=== PATIENT | female | born 1950 | race Caucasian/White ===

== ENCOUNTER → 2016-05-20 | Outpatient (CLI) | payer MEDICARE, BC | LOC: MW.CHFP 08:00 | PROVIDERS: ATTEND Family Medicine | DX: J30.1 Allergic rhinitis due to pollen (principal); J45.909 Unspecified asthma, uncomplicated; J32.9 Chronic sinusitis, unspecified; R05 Cough | CPT/HCPCS: 99214 ==

== ENCOUNTER → 2016-06-11 | Outpatient (CLI) | payer MEDICARE, BC | LOC: MW.CHFP 08:00 | PROVIDERS: ATTEND Family Medicine | DX: I10 Essential (primary) hypertension (principal); R51 Headache | CPT/HCPCS: G0463 ==

== ENCOUNTER 2018-12-19 12:08 | Day surgery (SDC) | payer MEDICARE, BC ==
[~2018-12-19 12:08] MED LIST: Betamethasone Acetate/Betamethasone Sod Phosphate 30 MG/5 ML MDV EPIDUR ONE; Diazepam 2 MG Tab PO ONE; Iopamidol 200-M 10 ML vial ITHECAL ONE; Lidocaine 2% 5 ML SDV INJECT ONE; Ropivacaine 0.5% 5 MG/ML 30 ML SDV INJECT ONE
--- NOTE | 2018-12-19 19:17 | OR ---
SURGEON: Sheela Phillips D.O. DATE OF PROCEDURE: 12/19/2018 PRIMARY SURGEON: Sheela Phillips D.O. PREOPERATIVE DIAGNOSES: 1. Failed back surgery syndrome. 2. L5-S1 radiculopathy. 3. Chronic low back pain. POSTOPERATIVE DIAGNOSES: 1. Failed back surgery syndrome. 2. L5-S1 radiculopathy. 3. Chronic low back pain. PROCEDURE PERFORMED: 1. Left L5 transforaminal epidural steroid injection. 2. Fluoroscopic guidance for needle placement. 3. Local with oral Valium for sedation. PREOPERATIVE PAIN: 6/10. POSTOPERATIVE PAIN: 0/10. FOLLOWUP: In the pain clinic in 3 weeks. SCREENING QUESTIONS: The patient answered "no" to all of the following questions: 1. Are you allergic to iodine, Betadine or latex? 2. Do you have a bleeding disorder? 3. Do you have any joint replacements, heart valve replacements, or a pacemaker? 4. Are you allergic to anti-inflammatories or blood thinners? 5. Do you have any current local or systemic infections? MEDICAL NECESSITY: This is a patient with a history of chronic low back pain and lower extremity radicular pain in the above dermatomal pattern that comes in for the above diagnostic and therapeutic procedure. Pertinent positives and negatives for this suspected disease process along with the diagnostic findings and testing are in the patient's history and physical exam. The most salient feature includes radicular pain in the above dermatomal pattern. The patient had failed attempts at conservative therapy including physical therapy, nonsteroidal anti- inflammatory drugs, and other medications. No contraindications to perform this procedure including medical, no bleeding disorders or infections, no psychological, no antisocial personality disorder or active addiction disorder. There are no work-related issues, and, in general, the patient does not have any history of multiple prior interventions, surgeries or nerve blocks which have failed to return the patient to function. The patient's other symptoms to be treated include numbness, paresthesia, dysesthesia or hypoesthesia referred into the left lower extremity or any weakness in the involved myotome. This procedure is being performed in accordance with national guidelines as written by the [employer] ([place]). DESCRIPTION OF PROCEDURE: The patient had the procedure thoroughly explained including risks, benefits and alternatives. Consent was signed in my clinic indicating understanding and willingness to proceed. The patient presented to [facility] where the patient was escorted to the dressing room to disrobe and change into a hospital gown. Preoperative vital signs were taken and stable. The patient reported that Valium was taken prior to the procedure. The patient was brought to the procedure room and placed in the prone position on the table. A pillow was placed under the abdomen in order to flatten the lumbar lordosis. The back was prepped with ChloraPrep and sterilely draped. All personnel in the operating room were dressed in appropriate attire including surgical scrubs, head and shoe covers. This was to ensure sterility while in the treatment room. During the time fluoroscopy was in use, all personnel in the operating room wore lead ackerman with thyroid collars. Sterile technique was used during the procedure. The fluoroscope was placed for the left L5 transforaminal epidural steroid injection. There was no sign of infection at the skin site for needle insertion. The skin was anesthetized with 2% lidocaine with a 27 gauge 1-1/2 inch needle. Then a 22 gauge 3-1/2 inch spinal needle, advanced to the L5. Under direct fluoroscopic guidance needle position was verified in three views; AP, oblique and lateral, with 0.2 cubic centimeters increments of Isovue-200 dye. No intravascular flow pattern was observed under live fluoroscopy. Then 12 milligrams of Celestone was slowly injected after negative aspiration of heme, cerebrospinal fluid and no paresthesias were noted. The needle was cleared prior to removal from the skin. No adverse reactions were noted. The patient was brought to the recovery room awake and in good condition by my staff. The patient was monitored and discharge instructions were given after a brief stay in the recovery area. Both oral and written discharge and follow up instructions were given. The patient will follow up in the clinic in 3-4 weeks post procedure to evaluate the efficacy. The patient verbalized understanding including understanding of those signs and symptoms that would require emergency care and knows how to contact the office if there are any problems or questions in the meantime. LOVE GANNON /[id number]
== END 2018-12-19 14:16 | disposition home or self-care (01) ==
LOC: MW.SDS 12:08
PROVIDERS: ATTEND Anesthesiology
DX: M96.1 Postlaminectomy syndrome, not elsewhere classified (principal); M54.17 Radiculopathy, lumbosacral region; G89.29 Other chronic pain; J45.909 Unspecified asthma, uncomplicated; I10 Essential (primary) hypertension; E78.00 Pure hypercholesterolemia, unspecified; M48.061 Spinal stenosis, lumbar region without neurogenic claudication; M51.16 Intervertebral disc disorders with radiculopathy, lumbar region; M47.26 Other spondylosis with radiculopathy, lumbar region; Z88.1 Allergy status to other antibiotic agents; Z88.6 Allergy status to analgesic agent; Z88.0 Allergy status to penicillin; Z88.2 Allergy status to sulfonamides; Z79.899 Other long term (current) drug therapy; Z79.82 Long term (current) use of aspirin; Z87.891 Personal history of nicotine dependence
CPT/HCPCS: 64483; A9270; J0702; 62323

== ENCOUNTER 2019-11-13 11:06 | Day surgery (SDC) | payer MEDICARE, BC ==
[2019-11-13] MEDS ORDERED: Ropivacaine 0.5% 5 MG/ML 30 ML SDV INJECT ONE (12:30)
[2019-11-13] MEDS ORDERED: Iopamidol 200-M 10 ML vial ITHECAL ONE (12:30)
[2019-11-13] MEDS ORDERED: Lidocaine 2% 5 ML SDV INJECT ONE (12:30)
[2019-11-13] MEDS ORDERED: Betamethasone Acetate/Betamethasone Sod Phosphate 30 MG/5 ML MDV EPIDUR ONE (12:30)
--- NOTE | 2019-11-13 16:50 | OR ---
SURGEON: Sheela Phillips D.O. DATE OF PROCEDURE: 11/13/2019 PRIMARY SURGEON: Sheela Phillips DO ASSISTANTS: OR staff present: 1. Willian Harper RN. 2. Willie Wilkins RN. 3. Willie Calderón RT. WOUND CLASS: I. PREOPERATIVE DIAGNOSES: 1. Failed back surgery syndrome. 2. Left sacroiliac joint arthropathy. 3. Chronic lumbosacral back pain. POSTOPERATIVE DIAGNOSES: 1. Failed back surgery syndrome. 2. Left sacroiliac joint arthropathy. 3. Chronic lumbosacral back pain. PROCEDURES PERFORMED: 1. Left sacroiliac joint injection. 2. Fluoroscopic guidance for needle placement. 3. Local with oral Valium for sedation. SCREENING QUESTIONS: The patient answered "No" to all the followin. Are you allergic to iodine, Betadine or latex? 2. Do you have a bleeding disorder? 3. Do you have any joint replacements, heart valve replacements or a pacemaker? 4. Are you on any anti-inflammatories or blood thinners? 5. Do you have any current local or systemic infections? MEDICAL NECESSITY: This is a patient with a history of severe chronic low back pain and sacroiliac joint irritation with pain over the sacral sulcus and the buttocks region who comes in for the above diagnostic and therapeutic procedure. Please see medical necessity note attached. This procedure is being done in accordance with guidelines as written by the International [employer] ([place]). DESCRIPTION OF PROCEDURE: The patient had the procedure thoroughly explained including all possible risks, benefits and alternatives. Consent was signed in my clinic indicating understanding and willingness to proceed. The [facility] and was escorted to the dressing room to disrobe and change into a hospital gown. Preoperative vital signs were taken and stable. The patient reported that Valium was taken prior to the procedure. The patient was brought to the procedure room and placed in the prone position on the procedure room table. A pillow was placed under the hips in order to flatten the lumbar lordosis. The back was prepped with ChloraPrep and sterilely draped. All personnel in the operating room were dressed in appropriate attire including surgical scrubs, head and shoe covers. This was to ensure sterility while in the treatment room. During the time fluoroscopy was in use all personnel in the operating room wore lead ackerman with thyroid collars. Sterile technique was used during the procedure. The patient was awake and conversant throughout the procedure. The fluoroscope was positioned to provide an oblique view of the sacroiliac joint. There was no evidence of infection at the site of needle insertion. The skin was anesthetized with 2% Lidocaine with a sterile 27-gauge 1.5 inch needle. Then under fluoroscopy a 22-gauge 3.5 inch spinal needle was placed within the sacroiliac joint in the lower one-third of the joint. IsoVue-200 contrast dye was injected under live fluoroscopy and no intravascular flow pattern was observed. After negative aspiration of heme, the following solution was injected: 0.5% Ropivacaine, Celestone and 2% Lidocaine. The patient tolerated the procedure well and vital signs were stable during and after the procedure. The staff escorted the patient to the recovery area and the patient was released to home in stable condition after a brief stay in the recovery room monitored by the nurse. The patient was given both oral and written discharge and follow up instructions. Recommended follow up in two weeks. The patient is able to contact the office if there are any additional problems or questions in the meantime. The patient was given discharge instruction and verbalizes understanding including understanding of those signs and symptoms that would require emergency care. PREOPERATIVE PAIN: 7 to 8 out of 10. POSTOPERATIVE PAIN: 2/10. FOLLOWUP: In the Pain Clinic in 3 weeks. LOVE / TERESSA /[id number]
== END 2019-11-13 13:22 ==
LOC: MW.SDS 11:06
PROVIDERS: ATTEND Anesthesiology
DX: G89.29 Other chronic pain (principal); M96.1 Postlaminectomy syndrome, not elsewhere classified; M47.816 Spondylosis without myelopathy or radiculopathy, lumbar region; M51.36 Other intervertebral disc degeneration, lumbar region; M53.3 Sacrococcygeal disorders, not elsewhere classified; E78.00 Pure hypercholesterolemia, unspecified; I10 Essential (primary) hypertension; F41.8 Other specified anxiety disorders; J45.909 Unspecified asthma, uncomplicated; Z87.891 Personal history of nicotine dependence; Z88.1 Allergy status to other antibiotic agents; Z88.0 Allergy status to penicillin; Z88.6 Allergy status to analgesic agent; Z79.899 Other long term (current) drug therapy
CPT/HCPCS: J0702; J2001; J2795; Q9966

== ENCOUNTER 2019-12-27 10:55 | Day surgery (SDC) | payer MEDICARE, BC ==
[2019-12-27] MEDS ORDERED: Betamethasone Acetate/Betamethasone Sod Phosphate 30 MG/5 ML MDV EPIDUR ONE (12:00)
[2019-12-27] MEDS ORDERED: Ropivacaine 0.5% 5 MG/ML 30 ML SDV INJECT ONE (12:00)
[2019-12-27] MEDS ORDERED: Lidocaine 2% 5 ML SDV INJECT ONE (12:00)
[2019-12-27] MEDS ORDERED: Iopamidol 200-M 10 ML vial ITHECAL ONE (12:00)
--- NOTE | 2019-12-27 16:32 | OR ---
SURGEON: Sheela Phillips D.O. DATE OF PROCEDURE: 12/27/2019 ASSISTANTS: OR staff present: 1. Chriss Ramirez. 2. Willian Harper RN. 3. Willian Arriola RT. WOUND CLASS: I. PREOPERATIVE DIAGNOSES: 1. Failed back surgery syndrome. 2. Left S1 radiculopathy. POSTOPERATIVE DIAGNOSES: 1. Failed back surgery syndrome. 2. Left S1 radiculopathy. PROCEDURES PERFORMED: 1. Left S1 transforaminal epidural steroid injection. 2. Fluoroscopic guidance for needle placement. 3. Local with oral Valium for sedation. SCREENING QUESTIONS: The patient answered "no" to all of the following questions: 1. Are you allergic to iodine, Betadine or latex? 2. Do you have a bleeding disorder? 3. Do you have any joint replacements, heart valve replacements, or a pacemaker? 4. Are you allergic to anti-inflammatories or blood thinners? 5. Do you have any current local or systemic infections? DESCRIPTION OF PROCEDURE: The patient had the procedure thoroughly explained including risks, benefits and alternatives. Consent was signed in my clinic indicating understanding and willingness to proceed. The patient presented to [facility] where the patient was escorted to the dressing room to disrobe and change into a hospital gown. Preoperative vital signs were taken and stable. The patient reported that Valium was taken prior to the procedure. The patient was brought to the procedure room and placed in the prone position on the table. A pillow was placed under the abdomen in order to flatten the lumbar lordosis. The back was prepped with ChloraPrep and sterilely draped. All personnel in the operating room were dressed in appropriate attire including surgical scrubs, head and shoe covers. This was to ensure sterility while in the treatment room. During the time fluoroscopy was in use, all personnel in the operating room wore lead ackerman with thyroid collars. Sterile technique was used during the procedure. The fluoroscope was placed for the left S1 transforaminal epidural steroid injection. There was no sign of infection at the skin site for needle insertion. The skin was anesthetized with 2% lidocaine with a 27 gauge 1-1/2 inch needle. Then, a 22 gauge 3-1/2 inch spinal needle, advanced to the left S1. Under direct fluoroscopic guidance needle position was verified in three views; AP, oblique and lateral, with 0.2 cubic centimeters increments of Isovue- 200 dye. No intravascular flow pattern was observed under live fluoroscopy. Then 12 milligrams of Celestone and local was slowly injected after negative aspiration of heme, cerebrospinal fluid and no paresthesias were noted. The needle was cleared prior to removal from the skin. No adverse reactions were noted. The patient was brought to the recovery room awake and in good condition by my staff. The patient was monitored and discharge instructions were given after a brief stay in the recovery area. Both oral and written discharge and follow up instructions were given. The patient will follow up in the clinic in 3-4 weeks post procedure to evaluate the efficacy. The patient verbalized understanding including understanding of those signs and symptoms that would require emergency care and knows how to contact the office if there are any problems or questions in the meantime. PREOPERATIVE PAIN: 5+/10. POSTOPERATIVE PAIN: 3/10. FOLLOWUP: In the Pain Clinic in 1 month. LOVE / TERESSA /[id number] SUE
== END 2019-12-27 13:00 | disposition home or self-care (01) ==
LOC: MW.SDS 10:55
PROVIDERS: ATTEND Anesthesiology
DX: M96.1 Postlaminectomy syndrome, not elsewhere classified (principal); M48.061 Spinal stenosis, lumbar region without neurogenic claudication; M51.16 Intervertebral disc disorders with radiculopathy, lumbar region; M47.26 Other spondylosis with radiculopathy, lumbar region; M53.3 Sacrococcygeal disorders, not elsewhere classified; J45.909 Unspecified asthma, uncomplicated; F41.8 Other specified anxiety disorders; E78.00 Pure hypercholesterolemia, unspecified; I10 Essential (primary) hypertension; Z88.8 Allergy status to other drugs, medicaments and biological substances; Z88.1 Allergy status to other antibiotic agents; Z88.0 Allergy status to penicillin; Z88.2 Allergy status to sulfonamides; Z79.899 Other long term (current) drug therapy; Z79.82 Long term (current) use of aspirin; Z98.890 Other specified postprocedural states; Z87.891 Personal history of nicotine dependence
CPT/HCPCS: 64483; J0702; J2001; J2795; Q9966

== ENCOUNTER 2021-03-09 19:28 | Emergency (ER) | payer MEDICARE, BC ==
[2021-03-09] MEDS ORDERED: Aspirin 81 MG Tab.Chew PO ONE (20:18)
[2021-03-09 20:42] LABS: CARBON DIOXIDE,CO2 22.7 mmol/L (21.0-32.0); POTASSIUM,K 3.7 mmol/L (3.5-5.1)
[2021-03-09] MEDS ORDERED: Heparin Sodium 5,000 Units/ML Vial IVPUSH ONE (21:00)
[2021-03-09] MEDS ORDERED: Heparin Sodium/0.45% NaCl 500 ML IV SCH (21:00)
[2021-03-09] MEDS ORDERED: Lactated Ringers 1,000 ML IV STA (21:11)
[2021-03-09] MEDS ORDERED: LORazepam 2 MG/ML SDV IVPUSH STA (21:47)
== END 2021-03-09 22:06 ==
LOC: MW.ED 19:28
DX: I21.4 Non-ST elevation (NSTEMI) myocardial infarction (principal); I10 Essential (primary) hypertension; R79.89 Other specified abnormal findings of blood chemistry; Z88.1 Allergy status to other antibiotic agents; Z88.2 Allergy status to sulfonamides; Z88.5 Allergy status to narcotic agent; Z88.8 Allergy status to other drugs, medicaments and biological substances; Z20.822 Contact with and (suspected) exposure to COVID-19; Z79.899 Other long term (current) drug therapy
CPT/HCPCS: 36415; 71045; 80053; 83735; 84439; 84443; 84484; 85025; 85379; 85610; 85730; 93005; 96365; 96375; 99285; A9270; J1644; J2060; J7120; U0002

== ENCOUNTER 2022-10-20 10:06 | Emergency (ER) | payer MEDICARE, BC ==
[2022-10-20] MEDS ORDERED: Sodium Chloride 0.9% 10 ML Syringe FLUSH PRN (10:07)
[2022-10-20] MEDS ORDERED: Sodium Chloride 0.9% 2.5 ML Syringe FLUSH PRN (10:07)
[2022-10-20 10:26] LABS: BASOPHILS PERCENT AUTO 0.4 % (0.0-1.5); EOSINOPHILS ABSOLUTE AUTO 0.1 K/uL (0.0-0.7); EOSINOPHILS PERCENT AUTO 1.1 % (0.0-7.0); HEMATOCRIT 41.8 % (36.0-46.0); LYMPHOCYTES ABSOLUTE AUTO 1.7 K/uL (0.6-2.4); LYMPHOCYTES PERCENT AUTO 38.2 % (16.0-40.0); MEAN CORPUSCULAR HEMOGLOBIN 28.3 pg (27.0-32.0); MEAN CORPUSCULAR HGB CONC 33.5 g/dL (31.0-37.0); MEAN CORPUSCULAR VOLUME 84.6 fL (80.0-98.0); MONOCYTES ABSOLUTE AUTO 0.6 K/uL (0.0-0.8); MONOCYTES PERCENT AUTO 14.2 % (0.0-15.0); NEUTROPHILS ABSOLUTE AUTO 2.1 K/uL (1.4-5.7); NEUTROPHILS PERCENT AUTO 46.1 % (48.0-80.0); NRBC ABSOLUTE 0 K/uL; PLATELET COUNT,PLT 192 K/uL (150-400); RED BLOOD CELL COUNT 4.94 M/uL (4.30-5.90); WHITE BLOOD CELL COUNT,WBC 4.45 K/uL (4.0-11.0)
[2022-10-20 10:47] LABS: A/G RATIO 1.1 (0.9-1.6); ALANINE AMINOTRANSFERASE,ALT 27 IU/L (14-63); ALKALINE PHOSPHATASE 42 U/L (46-116); ASPARTATE AMNIOTRANSFERASE,AST 24 IU/L (15-37); BILIRUBIN TOTAL 0.5 mg/dL (0.2-1.0); BLOOD UREA NITROGEN,BUN 18 mg/dL (7.0-18.0); CALCIUM 9.3 mg/dL (8.5-10.1); CARBON DIOXIDE,CO2 25.1 mmol/L (21.0-32.0); CHLORIDE,CL 103 mmol/L (98-107); GLUCOSE RANDOM 125 mg/dL (74-106); POTASSIUM,K 3.8 mmol/L (3.5-5.1); PROTEIN TOTAL,TP 7.5 g/dL (6.4-8.2); SODIUM,NA 140 mmol/L (136-145)
[2022-10-20 10:48] LABS: ESTIMATED GFR 59 mL/min (>60)
[2022-10-20] MEDS ORDERED: Sodium Chloride 0.9% 1,000 ML IV STA (10:51)
[2022-10-20] MEDS ORDERED: Ondansetron 4 MG/2 ML SDV IVPUSH ONE (10:51)
[2022-10-20] MEDS ORDERED: Meclizine 25 MG Tab PO ONE (10:51)
== END 2022-10-20 12:13 | disposition home or self-care (01) ==
LOC: MW.ED 10:06
DX: R42 Dizziness and giddiness (principal); R07.9 Chest pain, unspecified; I10 Essential (primary) hypertension; J45.909 Unspecified asthma, uncomplicated; Z79.899 Other long term (current) drug therapy; Z88.8 Allergy status to other drugs, medicaments and biological substances; Z88.1 Allergy status to other antibiotic agents; Z88.6 Allergy status to analgesic agent; Z88.5 Allergy status to narcotic agent; Z88.0 Allergy status to penicillin; Z88.2 Allergy status to sulfonamides; Z79.82 Long term (current) use of aspirin; Z20.822 Contact with and (suspected) exposure to COVID-19
CPT/HCPCS: 36415; 71045; 71045-26; 80053; 84484; 85025; 93005; 93010; 96361; 96374; 99284; 99285-25; A9270-GY; J2405; J3490; J7030; U0002

== ENCOUNTER 2024-10-20 19:20 | Emergency (ER) | payer MEDICARE, BC ==
[2024-10-20] MEDS ORDERED: Sodium Chloride 0.9% 10 ML Syringe FLUSH PRN (19:22)
[2024-10-20] MEDS ORDERED: Sodium Chloride 0.9% 2.5 ML Syringe FLUSH PRN (19:22)
[2024-10-20 19:45] LABS: NRBC ABSOLUTE 0.03 K/uL (0.00-0.02); NRBC PERCENT 0.2 /100WBC (0.0-0.2); PLATELET COUNT,PLT 107 K/uL (150-400); RED BLOOD CELL COUNT 4.44 M/uL (4.10-5.30); WHITE BLOOD CELL COUNT,WBC 13.25 K/uL (3.9-11.3)
[2024-10-20] MEDS: methylPREDNISolone Sodium Succinate 125 MG/2 ML SDV IVPUSH ONE (19:48)
[2024-10-20 19:51] LABS: BASE EXCESS VENOUS -8.2 (-2.0-3.0); BICARBONATE,VENOUS 15.0 mEq/L (22-29); PCO2 VENOUS 25.0 mmHG (41-51); PH,VENOUS 7.39 (7.32-7.43); PO2 VENOUS 55.0 mmHG (35-45)
[2024-10-20 20:00] LABS: INR 1.24 (0.86-1.11)
[2024-10-20 20:27] LABS: BAND ABSOLUTE MAN 3.45; BAND PERCENT MAN 26 %; LYMPHOCYTES ABSOLUTE MAN 0.27 K/uL (1.00-4.80); LYMPHOCYTES PERCENT MAN 2 % (24-44); METAMYELOCYTE ABSOLUTE MAN 1.33; METAMYELOCYTE PERCENT MAN 10 %; MONOCYTES ABSOLUTE MAN 0.66 K/uL (0.00-0.80); MONOCYTES PERCENT MAN 5 % (0-8); MYELOCYTE ABSOLUTE MAN 0.40; MYELOCYTE PERCENT MAN 3 %; SEG NEUTROPHILS ABSOLUTE MAN 7.16 K/uL (1.80-7.70); SEG NEUTROPHILS PERCENT MAN 54 % (41-71)
[2024-10-20 20:28] LABS: A/G RATIO 0.8 (0.9-1.6); ALANINE AMINOTRANSFERASE,ALT 23 IU/L (14-63); ASPARTATE AMNIOTRANSFERASE,AST 63 IU/L (15-37); BILIRUBIN TOTAL 1.3 mg/dL (0.2-1.0); BLOOD UREA NITROGEN,BUN 93 mg/dL (7.0-18.0); CARBON DIOXIDE,CO2 16.3 mmol/L (21.0-32.0); CHLORIDE,CL 98 mmol/L (98-107); CREATININE 5.2 mg/dL (0.6-1.0); ESTIMATED GFR 8 mL/min (>60); ETHANOL BLOOD MEDICAL <3 mg/dL; GLUCOSE RANDOM 105 mg/dL (74-106); POTASSIUM,K 3.9 mmol/L (3.5-5.1); PRO B-TYPE NATRIUR PEPT,BNPPRO 7153 pg/mL (0-450); PROTEIN TOTAL,TP 7.3 g/dL (6.4-8.2); SODIUM,NA 136 mmol/L (136-145)
[2024-10-20] MEDS: Furosemide 40 MG/4 ML VIAL IVPUSH ONE ×3 (20:39→22:42)
[2024-10-20] MEDS: Nitroglycerin 0.4 MG Tab.SL SL ONE (20:56)
[2024-10-20] MEDS: Ondansetron 4 MG/2 ML SDV IVPUSH ONE (21:04)
[2024-10-20 21:06] LABS: GLUCOSE,URINE NEGATIVE (NEGATIVE); OCCULT BLOOD,URINE TRACE-INTACT (NEGATIVE)
[2024-10-20 21:07] LABS: PCO2 VENOUS 21.0 mmHG (41-51); PH,VENOUS 7.39 (7.32-7.43); PO2 VENOUS 80.0 mmHG (35-45)
[2024-10-20 21:08] LABS: BASE EXCESS VENOUS -10.3 (-2.0-3.0); BICARBONATE,VENOUS 13.0 mEq/L (22-29)
[2024-10-20 21:15] LABS: AMPHETAMINES SCREEN, URINE NEGATIVE (CUTOFF=500); BUPRENORPHINE SCREEN,URINE NEGATIVE (CUTOFF=10); METHADONE SCREEN, URINE NEGATIVE (CUTOFF=200); METHAMPHETAMINES SCREEN, URINE NEGATIVE (CUTOFF=500); OXYCODONE SCREEN,URINE NEGATIVE (CUT0FF=100); PCP SCREEN,URINE NEGATIVE (CUTOFF=25); THC SCREEN,URINE 20 NG/ML NEGATIVE (CUTOFF=50)
[2024-10-20 21:15] LABS: APPEARANCE,URINE HAZY
[2024-10-20 21:17] LABS: EPITHELIAL CELLS,URINE MODERATE (NONE-FEW)
[2024-10-20] MEDS: LORazepam 2 MG/ML SDV IVPUSH ONE (21:54)
[2024-10-20 22:16] LABS: BLOOD UREA NITROGEN,BUN 88 mg/dL (7.0-18.0); CARBON DIOXIDE,CO2 11.1 mmol/L (21.0-32.0); CHLORIDE,CL 98 mmol/L (98-107); CREATININE 5.0 mg/dL (0.6-1.0); GLUCOSE RANDOM 106 mg/dL (74-106); POTASSIUM,K 3.7 mmol/L (3.5-5.1); SODIUM,NA 133 mmol/L (136-145)
[2024-10-20 22:18] LABS: ESTIMATED GFR 8 mL/min (>60)
[2024-10-20] MEDS: Heparin Sodium 5,000 Units/ML Vial IVPUSH ONE (22:32)
[2024-10-20] MEDS: Heparin Sodium/0.45% NaCl 25,000 UNITS/250 ML BAG IV SCH (22:33)
[2024-10-21 00:18] LABS: BASE EXCESS VENOUS -9.4 (-2.0-3.0); BICARBONATE,VENOUS 12.0 mEq/L (22-29); PCO2 VENOUS 16.0 mmHG (41-51); PH,VENOUS 7.47 (7.32-7.43); PO2 VENOUS 184.0 mmHG (35-45)
== END 2024-10-21 00:51 ==
LOC: MW.ED 19:20
DX: I21.4 Non-ST elevation (NSTEMI) myocardial infarction (principal); J81.0 Acute pulmonary edema; I13.0 Hypertensive heart and chronic kidney disease with heart failure and stage 1 through stage 4 chronic kidney disease, or unspecified chronic kidney disease; I50.9 Heart failure, unspecified; N18.9 Chronic kidney disease, unspecified; R41.82 Altered mental status, unspecified; R09.02 Hypoxemia; R53.1 Weakness; R79.89 Other specified abnormal findings of blood chemistry; R05.1 Acute cough; J18.9 Pneumonia, unspecified organism; D64.9 Anemia, unspecified; D69.6 Thrombocytopenia, unspecified; Z85.3 Personal history of malignant neoplasm of breast; Z92.21 Personal history of antineoplastic chemotherapy; Z88.0 Allergy status to penicillin; Z88.1 Allergy status to other antibiotic agents; Z88.2 Allergy status to sulfonamides; Z88.5 Allergy status to narcotic agent; Z88.8 Allergy status to other drugs, medicaments and biological substances; Z79.82 Long term (current) use of aspirin; Z79.899 Other long term (current) drug therapy; Z90.49 Acquired absence of other specified parts of digestive tract
CPT/HCPCS: 36415; 51702; 70450; 71045; 71250; 74176; 80048; 80053; 80143; 80179; 80305; 80307; 81001; 82550; 82803; 83605; 83735; 83880; 84100; 84484; 85025; 85379; 85610; 85730; 87040; 87426; 93005; 94660; 96365; 96366; 96367; 96368; 96375; 96376; 99285; A9270; J0692; J1644; J1938; J2060; J2405; J2919; J3374; J7030; J7050; 93010

== ENCOUNTER 2024-12-10 10:12 | Emergency (ER) | payer MEDICARE, BC ==
[2024-12-10] MEDS ORDERED: Sodium Chloride 0.9% 10 ML Syringe FLUSH PRN (10:37)
[2024-12-10] MEDS ORDERED: Sodium Chloride 0.9% 2.5 ML Syringe FLUSH PRN (10:37)
[2024-12-10 11:13] LABS: NRBC ABSOLUTE 1.26 K/uL (0.00-0.02); NRBC PERCENT 4.7 /100WBC (0.0-0.2); RED BLOOD CELL COUNT 3.28 M/uL (4.10-5.30); WHITE BLOOD CELL COUNT,WBC 26.77 K/uL (3.9-11.3)
[2024-12-10 11:34] LABS: PLATELET COUNT,PLT 21 K/uL (150-400)
[2024-12-10 11:36] LABS: BAND ABSOLUTE MAN 0.80; BAND PERCENT MAN 3 %; LYMPHOCYTES ABSOLUTE MAN 7.76 K/uL (1.00-4.80); LYMPHOCYTES PERCENT MAN 29 % (24-44); SEG NEUTROPHILS ABSOLUTE MAN 2.94 K/uL (1.80-7.70); SEG NEUTROPHILS PERCENT MAN 11 % (41-71)
[2024-12-10 11:37] LABS: BASOPHILS ABSOLUTE MAN 0.27 K/uL (0.00-0.20); BASOPHILS PERCENT MAN 1 % (0-1); EOSINOPHILS ABSOLUTE MAN 0.27 K/uL (0.00-0.45); EOSINOPHILS PERCENT MAN 1 % (0-6); METAMYELOCYTE ABSOLUTE MAN 0.27; METAMYELOCYTE PERCENT MAN 1 %; MONOCYTES ABSOLUTE MAN 14.19 K/uL (0.00-0.80); MONOCYTES PERCENT MAN 53 % (0-8); MYELOCYTE ABSOLUTE MAN 0.27; MYELOCYTE PERCENT MAN 1 %
[2024-12-10 11:47] LABS: A/G RATIO 0.9 (0.9-1.6); ALANINE AMINOTRANSFERASE,ALT 20.0 IU/L (14-63); ASPARTATE AMNIOTRANSFERASE,AST 53.0 IU/L (15-37); BILIRUBIN TOTAL 0.8 mg/dL (0.2-1.0); BLOOD UREA NITROGEN,BUN 34.0 mg/dL (7.0-18.0); CARBON DIOXIDE,CO2 24.6 mmol/L (21.0-32.0); CHLORIDE,CL 100.0 mmol/L (98-107); CREATININE 1.4 mg/dL (0.6-1.0); EST CRCL DRUG DOSING (CG) 32.0 mL/min; GLUCOSE RANDOM 125.0 mg/dL (74-106); POTASSIUM,K 3.7 mmol/L (3.5-5.1); PROTEIN TOTAL,TP 6.9 g/dL (6.4-8.2); SODIUM,NA 136.0 mmol/L (136-145)
[2024-12-10 11:48] LABS: ESTIMATED GFR 39.0 mL/min (>60)
[2024-12-10] MEDS: Iopamidol 755 MG/ML 500 ML Multipack Bottle IVPUSH STA (12:21)
[2024-12-10 12:36] LABS: LACTIC ACID 1.5 mmol/L (0.4-2.0)
[2024-12-10 12:50] LABS: CORONAVIRUS COVID-19 NAA NEGATIVE (NEGATIVE); INFLUENZA A NAA NEGATIVE (NEGATIVE); INFLUENZA B NAA NEGATIVE (NEGATIVE); RESPIRATORY SYNCYTIAL VIR NAA NEGATIVE (NEGATIVE)
[2024-12-10 12:57] LABS: APPEARANCE,URINE CLEAR; GLUCOSE,URINE NEGATIVE (NEGATIVE); OCCULT BLOOD,URINE NEGATIVE (NEGATIVE)
[2024-12-10] MEDS: Ondansetron 4 MG/2 ML SDV IVPUSH ONE (15:30)
[2024-12-10] MEDS: fentaNYL 50 MCG/ML SDV IVPUSH ONE (15:30)
== END 2024-12-10 16:45 ==
LOC: MW.ED 10:12
DX: C95.00 Acute leukemia of unspecified cell type not having achieved remission (principal); I10 Essential (primary) hypertension; J45.909 Unspecified asthma, uncomplicated; Z88.8 Allergy status to other drugs, medicaments and biological substances; Z88.0 Allergy status to penicillin; Z88.2 Allergy status to sulfonamides; Z79.899 Other long term (current) drug therapy; Z79.82 Long term (current) use of aspirin; Z90.49 Acquired absence of other specified parts of digestive tract; Z90.710 Acquired absence of both cervix and uterus
CPT/HCPCS: 36415; 70450; 71260; 73562; 74177; 80053; 81003; 83605; 83690; 83735; 84484; 85025; 87040; 87637; 96361; 96374; 96375; 99285; J2405; J3010; J7030; Q9967; 93010